=== PATIENT | female | born 1950 | race Caucasian/White ===

== ENCOUNTER 2019-12-03 14:39 | Emergency (ER) | payer MEDICARE, SELFPAY ==
[2019-12-03] VITALS (7 sets, daily range): BP systolic 131–134; BP diastolic 80–100; PULSE 90–92; RESP 18–22; TEMP 36.6; O2SAT 97–99
--- NOTE | ~2019-12-03 | XR_ITS ---
EXAMINATION: XR chest 2V EXAM DATE: 12/03/2019 17:26 INDICATION: Coughing. A less, dysphagia. TECHNIQUE: Frontal and lateral projections of the chest obtained and reviewed. There is no prior yuval dy for comparison. FINDINGS: The lungs are clear. There are no pleural effusions. The cardiomediastinal silhouette is within normal limits. There is no pneumothorax suspected. There are mild bony degenerative changes. IMPRESSION: No acute cardiopulmonary findings. Reviewed, dictated and finalized at location A.
[2019-12-03 16:54] LABS: Basophils Percent Auto 0.7 % (0.2-1.2); Eosinophils Absolute Auto 0.1 K/mm3 (0-0.3); Eosinophils Percent Auto 1.4 % (0-4.4); Hematocrit 42.8 % (37.0-47.0); Hemoglobin 13.8 g/dL (12.0-15.0); Immature Granulocyte Absolute 0.02 K/mm3 (0.00-0.031); Immature Granulocyte Percent A 0.5 % (0-0.5); Lymphocytes Absolute Auto 0.66 K/mm3 (0.9-3.2); Lymphocytes Percent Auto 15.5 % (18.3-44.2); Mean Corpuscular HGB Conc 32.2 g/dl (32-36); Mean Corpuscular Hemoglobin 29.9 pg (26-34); Mean Corpuscular Volume 92.6 fl (80-100); Mean Platelet Volume 11.6 fl (7.4-10.4); Monocytes Absolute Auto 0.4 K/mm3 (0.1-0.6); Monocytes Percent Auto 8.2 % (2.6-8.5); Neutrophils Absolute Auto 3.1 K/mm3 (1.3-6.7); Neutrophils Percent Auto 73.7 % (45.5-73.1); Platelet Count Result 277 k/mm3 (150-375); Red Blood Count 4.62 M/mm3 (4.2-5.4); Red Cell Distribution Width 14.2 % (11.5-14.5); White Blood Count 4.3 K/mm3 (4.5-10.0)
--- NOTE | 2019-12-03 16:56 | PC.NURSE ---
patient brought back to ED room 13 with cough and congestion. hx of ALS. triage completed. see notes. alert. answers simple yes/no questions but provides hx. SL inserted. labs drawn. on BP and O2 monitors. call light in reach. patient and updated on current treatment plan and expected wait time.
[2019-12-03 17:17] LABS: Anion Gap 4.99999 mmol/L (8-16); Blood Urea Nitrogen 15 mg/dL (7-17); Calcium 10.4 mg/dL (8.4-10.2); Carbon Dioxide > 40 mmol/L (22-30); Chloride 98 mmol/L (98-107); Estimated CRCL calculation 106 ml/min; Estimated Glomerular Filt Rate > 60; Glucose 132 mg/dL (65-105); Potassium 3.9 mmol/L (3.4-5.0); Sodium 143 mmol/L (137-145)
--- NOTE | 2019-12-03 17:37 | PC.NURSE ---
patient's labs resulted. CXR resulted. waiting for further orders from provider vs disposition.
[2019-12-03 18:31] LABS: Alveolar/Arterial O2 Gradient 29.6 mmHg; Base Excess ABG 1.5 mEq/l (+/-2.0); Carboxyhemoglobin 0.9 % THb (0-2.0); Fractional Inspired Oxygen 21 %; HCO3 ABG 26.2 mEq/l (22.0-26.0); Methemoglobin ABG 0.3 %THb (0-1.5); Oxygen Content ABG 17.7 %vol (16.0-22.0); Oxygen Saturation ABG 94.4 % (95.0-100.0); Oxyhemoglobin 92.5 % THb (90.0-100.0); PCO2 ABG 41.6 mmHg (35.0-45.0); PO2 ABG 70.3 mmHg (80.0-100.0); PO2 FiO2 Ratio Arterial Blood 3.35 %; Reduced Hemoglobin 6.3 %THb (0-5.0); Total Hemoglobin 13.6 g/dL (12.0-18.0); pH ABG 7.417 (7.350-7.450)
[2019-12-03 18:32] LABS: Device ROOM AIR; Modified Allen's Test Pass; Site Drawn LEFT RADIAL
--- NOTE | 2019-12-03 18:42 | PC.NURSE ---
resting on stretcher. alert. in room. had ABG's drawn. waiting for further orders vs disposition from provider
--- NOTE | 2019-12-03 18:51 | ED.GENADULT ---
HPI - General Adult General Chief complaint: Shortness of Breath/Dyspnea Stated complaint: Sputum stuck in throat Time Seen by Provider: 12/03/19 16:23 History of Present Illness HPI narrative: Patient is a 69-year-old female who presents to the ER with difficulty swallowing her secretions. Patient had a G-tube placed 2 weeks ago at [facility] for dysphagia. Patient has ALS that has been progressing. She is scheduled to see a respiratory therapist this week to try a jacket to break up secretions. Patient does not particularly feel like she has sinus congestion that is more her oral secretions that cause her to gag and have coughing fits. reports that she takes an anxiety pill it helps quell some of her issues. Patient can only give yes or no answers to her thumbs up or thumbs down due to her progressive neurologic condition. Review of Systems Review of Systems: ROS unobtainable: Yes unobtainable due to medical condition PMFSH Past Medical History Medical History (Updated 12/03/19 @ 19:00 by Broderick Rust MD) ALS (amyotrophic lateral sclerosis) Surgical History Surgical History (Updated 12/03/19 @ 18:55 by Broderick Rust MD) Gastrostomy tube in place Social History Social History Smoking status: Former smoker Smoking end date: 02/17/83 Alcohol intake: never Exam Narrative: Exam Narrative: GENERAL: Chronically ill-appearing, underweight, and in no acute distress. HEAD: Normocephalic, atraumatic. ENT: Mucous membranes moist. Normal posterior oropharynx. Tongue fasciculations noted. CHEST: Clear to auscultation. No respiratory distress. HEART: Regular rate and rhythm. Normal peripheral pulses. ABDOMEN: Soft, nontender, nondistended. EXTREMITIES: Normal range of motion. No edema. SKIN: Warm, dry, no rash. Course Course Emergency Course: Patient is not having any issues tolerating her oral secretions here. No evidence of aspiration pneumonia. Recommend follow-up with her neurologist for further treatment valuation. Recommend sleeping with the head of the bed elevated. To have ordered a bulb suction to clear saliva from patient's mouth. She may continue to spit into a towel. Vital Signs Vital signs: Vital Signs Temperature 97.8 F 12/03/19 14:54 Pulse Rate 92 12/03/19 14:54 Respiratory Rate 22 H 12/03/19 14:54 Blood Pressure 131/80 12/03/19 14:54 Pulse Oximetry 98 12/03/19 14:54 Temperature 97.8 F 12/03/19 14:54 Pulse Rate 90 12/03/19 16:49 Respiratory Rate 18 12/03/19 16:49 Blood Pressure 134/100 H 12/03/19 16:49 Pulse Oximetry 99 12/03/19 18:00 Medical Decision Making Vital Signs Vital Signs: Vital Signs Temperature 97.8 F 12/03/19 14:54 Pulse Rate 92 12/03/19 14:54 Respiratory Rate 22 H 12/03/19 14:54 Blood Pressure 131/80 12/03/19 14:54 Pulse Oximetry 98 12/03/19 14:54 Temperature 97.8 F 12/03/19 14:54 Pulse Rate 90 12/03/19 16:49 Respiratory Rate 18 12/03/19 16:49 Blood Pressure 134/100 H 12/03/19 16:49 Pulse Oximetry 99 12/03/19 18:00 Lab Data Result diagrams: 12/03/19 16:50 12/03/19 16:50 Labs: Lab Results 12/03/19 12/03/19 12/03/19 Range/Units 16:50 16:50 18:16 WBC 4.3 L (4.5-10.0) K/mm3 RBC 4.62 (4.2-5.4) M/mm3 Hgb 13.8 (12.0-15.0) g/dL Hct 42.8 (37.0-47.0) % MCV 92.6 (80-100) fl MCH 29.9 (26-34) pg MCHC 32.2 (32-36) g/dl RDW 14.2 (11.5-14.5) % Plt Count 277 (150-375) k/mm3 MPV 11.6 H (7.4-10.4) fl Immature Gran % (Auto) 0.5 (0-0.5) % Neut % (Auto) 73.7 H (45.5-73.1) % Lymph % (Auto) 15.5 L (18.3-44.2) % [place] % (Auto) 8.2 (2.6-8.5) % Eos % (Auto) 1.4 (0-4.4) % Baso % (Auto) 0.7 (0.2-1.2) % Lymph # (Auto) 0.66 L (0.9-3.2) K/mm3 [place] # (Auto) 0.4 (0.1-0.6) K/mm3 Eos # (Auto) 0.1 (0-0.3) K/mm3 Baso # (Auto) 0.0 (0.0-0.1) K/mm3 Abs Immat Gran (auto
--- NOTE | 2019-12-03 19:16 | PC.NURSE ---
no change in condition. patient ready for discharge per MD. report given to Cat RN.
--- NOTE | 2019-12-03 19:23 | PC.NURSE ---
discharge instructions reviewed with patient and her . SL removed. patient has her own electric scooter here.
== END 2019-12-03 19:22 | disposition home or self-care (01) ==
PROVIDERS: Emergency Provider Emergency Medicine; PCP Nurse Practitioner Adult Health
DX: R13.10 Dysphagia, unspecified (principal); G12.21 Amyotrophic lateral sclerosis; Z87.891 Personal history of nicotine dependence; Z93.1 Gastrostomy status
CPT/HCPCS: 36415; 36600; 71046; 80048; 82375; 82805; 83050; 85025; 99283